=== PATIENT | male | born 1960 | race Caucasian/White ===

== ENCOUNTER → 2017-11-20 07:29 | Outpatient (CLI) | payer OTHER, SELFPAY ==
[2017-11-20 07:53] LABS: HCT 49.2 % (40.0-50.0); HGB 16.5 g/dL (13.5-17.5); Mean Corp. HGB Concentration 33.5 g/dL (32.0-36.0); Mean Corpuscular Hemoglobin 30.8 pg (27.0-33.0); Mean Corpuscular Volume 91.8 fL (80-95); Platelet Count 308 x1000/uL (130-400); RBC 5.36 m/cumm (4.50-6.00); RBC Distribution Width 13.8 % (11.8-14.1); White Blood Cell Count 9.76 k/cumm (4.4-10.8)
[2017-11-20 09:24] LABS: ALT 36 U/L (12-78); AST 19 U/L (15-37); Albumin 3.5 g/dL (3.4-5.0); Alkaline Phosphatase 102 U/L (46-116); Anion Gap 9.6 mmol/L (3-11); BUN 13 mg/dL (7-18); Bilirubin, Total 0.4 mg/dL (0.2-1.0); CO2 26.4 mmol/L (21.0-32.0); CREATININE 1.01 mg/dL (0.70-1.30); Calcium 8.5 mg/dL (8.5-10.1); Chloride 105 mmol/L (98-107); Glucose 109 mg/dL (70-100); Potassium 4.3 mmol/L (3.5-5.1); Sodium 141 mmol/L (136-145); TSH 1.57 uIU/mL (0.358-3.74); Total Protein 6.6 g/dL (6.4-8.2)
== END ==
PROVIDERS: PCP Nurse Practitioner Family; Visit Provider Nurse Practitioner Family
DX: R53.83 Other fatigue (principal)
CPT/HCPCS: 36415; 80053; 85027; 84443

== ENCOUNTER 2018-01-29 08:24 | Outpatient (CLI) | payer OTHER, SELFPAY ==
[2018-01-29 10:09] LABS: ALT 35 U/L (12-78); AST 17 U/L (15-37); Albumin 3.2 g/dL (3.4-5.0); Alkaline Phosphatase 99 U/L (46-116); Anion Gap 12.8 mmol/L (3-11); BUN 13 mg/dL (7-18); Bilirubin, Total 0.5 mg/dL (0.2-1.0); CO2 26.2 mmol/L (21.0-32.0); CREATININE 0.94 mg/dL (0.70-1.30); Calcium 8.4 mg/dL (8.5-10.1); Chloride 105 mmol/L (98-107); FREE T4 0.78 ng/dL (0.76-1.46); Glucose 115 mg/dL (70-100); Potassium 4.2 mmol/L (3.5-5.1); Sodium 144 mmol/L (136-145); TSH 1.02 uIU/mL (0.358-3.74); Total Protein 6.3 g/dL (6.4-8.2)
[2018-01-29 12:23] LABS: Cholesterol 195 mg/dL (50-200); HDL Cholesterol 46 mg/dL (40-60); LDL CHOLESTEROL 130 mg/dL (<100); Triglyceride 102 mg/dL (30-150)
[2018-02-01 11:25] LABS: Hepatitis C Ab w Rflx HCV PCR Negative (NEGAT)
== END 2018-01-29 08:44 ==
PROVIDERS: Nurse Practitioner Family; PCP Nurse Practitioner Family; Visit Provider Nurse Practitioner Family
DX: Z00.00 Encounter for general adult medical examination without abnormal findings (principal); E66.9 Obesity, unspecified; Z13.220 Encounter for screening for lipoid disorders; Z11.59 Encounter for screening for other viral diseases; Z13.228 Encounter for screening for other metabolic disorders
CPT/HCPCS: 36415; 80053; 80061; 83721; 86803; 84439; 84443

== ENCOUNTER 2018-02-08 09:37 | Outpatient (CLI) | payer OTHER, SELFPAY ==
[2018-02-08 10:49] LABS: Hemoglobin A1C 6.4 % (4.5-6.2)
[2018-02-11 11:34] LABS: Testosterone, Free 4.92 ng/dL (3.87-14.7); Testosterone, Total 164 ng/dL (240-950)
== END 2018-02-08 09:57 ==
PROVIDERS: PCP Nurse Practitioner Family; Visit Provider Nurse Practitioner Family
DX: R53.83 Other fatigue (principal); Z00.00 Encounter for general adult medical examination without abnormal findings
CPT/HCPCS: 36415; 84402; 84403; 83036

== ENCOUNTER 2018-02-19 07:48 | Outpatient (CLI) | payer OTHER, SELFPAY ==
[2018-02-21 11:45] LABS: Testosterone, Total 175 ng/dL (240-950)
[2018-02-22 10:55] LABS: FSH 3.2 mIU/ml (1.4-18.1); LH 3.9 mIU/ml (2-9)
== END 2018-02-19 08:08 ==
PROVIDERS: PCP Nurse Practitioner Family; Visit Provider Nurse Practitioner Family
DX: E29.1 Testicular hypofunction (principal)
CPT/HCPCS: 36415; 84403; 83001; 83002

== ENCOUNTER 2018-09-05 08:54 | Outpatient (CLI) | payer OTHER, SELFPAY ==
[2018-09-05 09:35] LABS: Hemoglobin A1C 5.8 % (4.5-6.2)
[2018-09-05 10:29] LABS: Cholesterol 160 mg/dL (50-200); HDL Cholesterol 34 mg/dL (40-60); LDL CHOLESTEROL 102 mg/dL (<100); Triglyceride 65 mg/dL (30-150)
== END 2018-09-05 09:14 ==
PROVIDERS: PCP Nurse Practitioner Family; Visit Provider Nurse Practitioner Family
DX: R73.01 Impaired fasting glucose (principal)
CPT/HCPCS: 36415; 80061; 83721; 83036

== ENCOUNTER 2019-02-15 07:41 | Outpatient (CLI) | payer OTHER, SELFPAY ==
[2019-02-15 08:24] LABS: Abs Immature Grans 0.13 k/cumm (0.0-0.09); Absolute Basophil Count 0.05 k/cumm (0.0-0.2); Absolute Eosinophil Count 0.35 k/cumm (0.0-0.7); Absolute Lymphocyte Count 2.67 k/cumm (1.2-3.4); Absolute Monocyte Count 1.07 k/cumm (0.11-0.7); Absolute Neutrophil Count 4.94 k/cumm (1.2-6.7); Basophils % 0.5; Eosinophils % 3.8; HCT 49.3 % (40.0-50.0); HGB 16.1 g/dL (13.5-17.5); Immature Grans % 1.4; Mean Corp. HGB Concentration 32.7 g/dL (32.0-36.0); Mean Corpuscular Volume 91.8 fL (80-95); Mean Platelet Volume 9.8 fL (8.0-11.0); Monocytes % 11.6; Neutrophils % 53.7; Platelet Count 311 x1000/uL (130-400); RBC 5.37 m/cumm (4.50-6.00); RBC Distribution Width 13.8 % (11.8-14.1); White Blood Cell Count 9.21 k/cumm (4.4-10.8)
[2019-02-15 09:14] LABS: ALT 34 U/L (16-63); AST 18 U/L (15-37); Albumin 3.4 g/dL (3.4-5.0); Alkaline Phosphatase 102 U/L (46-116); Anion Gap 10.3 mmol/L (3-11); BUN 19 mg/dL (7-18); Bilirubin, Total 0.6 mg/dL (0.2-1.0); CO2 25.7 mmol/L (21.0-32.0); CREATININE 1.05 mg/dL (0.70-1.30); Chloride 104 mmol/L (98-107); Glucose 135 mg/dL (70-100); Potassium 4.3 mmol/L (3.5-5.1); Sodium 140 mmol/L (136-145); TSH (W/Ref FT4) 1.87 uIU/mL (0.36-3.74); Total Protein 6.7 g/dL (6.4-8.2)
[2019-02-16 11:13] LABS: Calculated LDL 121 mg/dL; Cholesterol 192 mg/dL (50-200); HDL Cholesterol 48 mg/dL (40-60); Triglyceride 118 mg/dL (30-150)
[2019-02-16 11:18] LABS: Hemoglobin A1C 6.1 % (4.5-6.2)
--- NOTE | 2019-02-18 11:10 | AMB.OFFPRO_ITS ---
OFFICE PROCEDURE NOTE DATE OF PROCEDURE: February 18, 2019 PREOPERATIVE DIAGNOSIS: Extensive viral warts on bilateral hands. Today we only treated the right hand. SURGEON: Lupe Biswas D.O. ANESTHESIA: Local. ESTIMATED BLOOD LOSS: < 5 cc's CONDITION: The patient tolerated the procedure well without complications. HISTORY: Mr. Sr is a 58-year-old male who presents to the office today for treatment of long-time viral warts. He has had these for many years. They actually are continuing to become worse and are starting to spread. He is here today for removal. Informed consent was obtained explaining risks and benefits of the procedure, including but not limited to bleeding, infection, complications from anesthesia, chronic pain, chronic numbness and recurrence. He understands that he is going to need multiple treatments over a period of time and we can?t treat all of them in one day. We addressed the right hand first today, as these appear to be the least involved extremity. He has extensive disease on his right thumb and then on the fourth, fifth inter-web space he has two warts, as well as on the fifth digit. PROCEDURE: The thumb was attended to first and we did do a ring block on this. The distal portion of the proximal phalange is prepped and draped in the usual sterile fashion using a Betadine scrub solution. A ring block is performed with 10 cc's of 1% Lidocaine plain. Once the block had set in, the thumb tip is then prepped and draped using Betadine. The firm warty tissue is pared down. Cautery was used to provide hemostasis and two applications of liquid nitrogen are used. Each additional wart is then treated with injections of local Lidocaine and the overlying tissue is debrided down to the base. It is cauterized and then x2 applications of liquid nitrogen are applied. Band-Aids are applied. He was given instructions in wound care, activity and warning signs. He does not want any pain meds and will use ice and ibuprofen as needed. He should avoid any ?dirty work? and/or use gloves as needed. We will see him back in two weeks in follow-up and see how they are healing up and then attend to the warts on the left hand as well. The patient tolerated the procedure well without complications. ALESIA/armando D/ cc: Kenzie Hahn APRN
== END 2019-02-15 08:01 ==
PROVIDERS: PCP Nurse Practitioner Family; Visit Provider Nurse Practitioner Family
DX: Z00.00 Encounter for general adult medical examination without abnormal findings (principal); Z13.0 Encounter for screening for diseases of the blood and blood-forming organs and certain disorders involving the immune mechanism; Z13.29 Encounter for screening for other suspected endocrine disorder; Z13.228 Encounter for screening for other metabolic disorders; Z13.1 Encounter for screening for diabetes mellitus; Z13.220 Encounter for screening for lipoid disorders; Z12.5 Encounter for screening for malignant neoplasm of prostate
CPT/HCPCS: 36415; 80053; 80061; 84153; 83036; 84443; 85025

== ENCOUNTER 2019-06-10 07:42 | Outpatient (CLI) | payer OTHER, SELFPAY ==
[2019-06-10 10:07] LABS: Hemoglobin A1C 6.7 % (3.8-5.6)
[2019-06-10 11:59] LABS: Anion Gap 7.4 mmol/L (3-11); BUN 16 mg/dL (7-18); CO2 31.6 mmol/L (21.0-32.0); CREATININE 1.19 mg/dL (0.70-1.30); Calcium 8.4 mg/dL (8.5-10.1); Chloride 103 mmol/L (98-107); Glucose 102 mg/dL (74-106); Magnesium 2.2 mg/dL (1.8-2.4); Potassium 4.5 mmol/L (3.5-5.1); Sodium 142 mmol/L (136-145)
[2019-06-13 09:44] LABS: HBs Antibody, Quant 14.8 mIU/mL (See Note); Hepatitis B Surface Ab Positive (See Note)
[2019-06-13 11:06] LABS: Hepatitis C Ab w Rflx HCV PCR Negative (Negative)
== END 2019-06-10 08:02 ==
PROVIDERS: PCP Nurse Practitioner Family; Visit Provider Nurse Practitioner Family
DX: R73.03 Prediabetes (principal)
CPT/HCPCS: 36415; 80048; 86706; 86803; 83036; 83735

== ENCOUNTER 2020-01-20 04:43 | Outpatient (CLI) | payer OTHER, SELFPAY ==
--- NOTE | 2020-01-20 13:30 | DI.CT_ITS ---
EXAM: CT ABDOMEN PELVIS W CLINICAL HISTORY: INCREASING ABD PAIN, R10.9. TECHNIQUE: Imaging Protocol: Axial computed tomography images with coronal and sagittal reformatted images were created and reviewed CONTRAST MATERIAL: Intravenous: Omnipaque 350 Contrast volume:100 ml Oral: yes / COMPARISON: No exams were available for comparison FINDINGS: ABDOMEN: Lung Bases: Normal where visualized. Liver: Normal density. No measurable mass. Gallbladder and biliary tract: No radiodense calculus or dilation. Pancreas: Normal density, no abnormal calcifications or inflammatory process. Spleen: Normal. Kidneys: Normal size, contour and axis. No radiodense stones or obstructive uropathy. No masses seen. Bilateral renal cysts. Adrenal glands: No masses seen. Abdominal Aorta: Abdominal portion non-dilated. PELVIS: Bladder: Symmetric distention, no gross wall thickening. Bowel: Small hiatal hernia. No obstruction or bowel wall thickening. Normal appendix. Peritoneal cavity: No ascites, collection or mesenteric inflammatory response. Bones: Within normal limits. Reproductive organs: Nodule in the central superior prostate with impression on the base of the bladd er. Lymph nodes: Unremarkable. Small bilateral fatty containing inguinal hernias. Impression: No acute abnormality is identified in the abdomen and pelvis. RADIATION DOSE DELIVERED: 1,296.05mGy.cm Total DLP DATA REPOSITORY: All CT scans at this facility are submitted to the National Radiology Data Registry (NRDR) Dose Index Registry (DIR) with the [employer] (ACR). RADIATION OPTIMIZATION: All CT scans at this facility use at least one of these dose optimization te chniques: automated exposure control; mA and/or kV adjustment per patient size (includes targeted exa ms where dose is matched to clinical indication); or iterative reconstruction.
[2020-01-20] MEDS: Omnipaque 350 MG/ML 100 ML BTL IJ (15:22)
[2020-01-20] MEDS: Normal Saline - Diluent 50 ML VIAL IV (15:23)
[2020-01-20] MEDS: Omnipaque 350 MG/ML 50 ML BTL PO (15:24)
== END 2020-01-20 05:03 ==
PROVIDERS: PCP Nurse Practitioner Family; Visit Provider Nurse Practitioner Family
DX: R10.9 Unspecified abdominal pain (principal)
CPT/HCPCS: 74177; J3490; Q9967

== ENCOUNTER 2020-03-08 02:26 | Outpatient (CLI) | payer OTHER, SELFPAY ==
[2020-03-09 22:05] LABS: SARS-CoV-2 RNA Not Detected (NotDetected); SARS-CoV-2 RNA Source Nasal/Nares
== END 2020-03-08 02:46 ==
PROVIDERS: PCP Nurse Practitioner Family; Visit Provider Surgery
DX: Z11.59 Encounter for screening for other viral diseases (principal); Z01.818 Encounter for other preprocedural examination
CPT/HCPCS: U0003

== ENCOUNTER 2020-03-09 03:28 | Outpatient (CLI) | payer OTHER, SELFPAY ==
[2020-03-09 07:55] LABS: Abs Immature Grans 0.08 10^3/uL (0.0-0.06); Absolute Basophil Count 0.04 10^3/uL (0.0-0.2); Absolute Eosinophil Count 0.42 10^3/uL (0.0-0.7); Absolute Lymphocyte Count 2.41 10^3/uL (1.2-3.4); Absolute Monocyte Count 1.01 10^3/uL (0.1-0.8); Absolute Neutrophil Count 5.53 10^3/uL (1.2-6.7); Basophils % 0.4; Eosinophils % 4.4; HCT 47.7 % (40.0-50.0); HGB 16.1 g/dL (13.5-17.5); Immature Grans % 0.8; Lymphocytes % 25.4; MCH 30.6 pg (27.0-33.0); MCHC 33.8 % (32.0-36.0); MCV 90.7 fL (80-95); MPV 9.6 fL (8.0-11.0); Monocytes % 10.6; Neutrophils % 58.4; Nucleated RBC 0 %; Platelet Count 327 10^3/uL (130-400); RBC 5.26 10^6/uL (4.36-5.78); RDW 13.1 % (11.8-14.1); RDW-SD 43.8 fL; WBC 9.49 10^3/uL (4.4-10.8)
[2020-03-09 08:26] LABS: Hemoglobin A1C 6.4 % (<5.7)
[2020-03-09 09:22] LABS: ALT 30 U/L (16-63); AST 18 U/L (15-37); Albumin 3.6 g/dL (3.4-5.0); Alkaline Phosphatase 83 U/L (46-116); Anion Gap 6.6 mmol/L (3-11); BUN 16 mg/dL (7-18); Bilirubin, Total 0.6 mg/dL (0.2-1.0); CO2 26.4 mmol/L (21.0-32.0); CREATININE 1.06 mg/dL (0.70-1.30); Calcium 8.6 mg/dL (8.5-10.1); Chloride 104 mmol/L (98-107); FREE T4 0.91 ng/dL (0.76-1.46); Glucose 113 mg/dL (74-106); Potassium 4.2 mmol/L (3.5-5.1); Sodium 137 mmol/L (136-145); TSH 1.14 uIU/mL (0.36-3.74); Total Protein 6.7 g/dL (6.4-8.2)
[2020-03-09 09:43] LABS: Calculated LDL 119 mg/dL (<100); Cholesterol 182 mg/dL (<200); HDL Cholesterol 47 mg/dL (40-60); Triglyceride 80 mg/dL (<150)
[2020-03-09 13:09] LABS: Vitamin D 25 Total 19.6 ng/ml (30-100)
[2020-03-12 14:09] LABS: PSA, Screening 0.6 ng/mL (0-3.5)
== END 2020-03-09 03:48 ==
PROVIDERS: PCP Nurse Practitioner Family; Visit Provider Nurse Practitioner Family
DX: Z00.00 Encounter for general adult medical examination without abnormal findings (principal); Z13.220 Encounter for screening for lipoid disorders; Z13.1 Encounter for screening for diabetes mellitus; Z13.29 Encounter for screening for other suspected endocrine disorder; Z13.228 Encounter for screening for other metabolic disorders; Z13.21 Encounter for screening for nutritional disorder; Z12.5 Encounter for screening for malignant neoplasm of prostate
CPT/HCPCS: 36415; 80053; 80061; 82306; 84153; 83036; 84439; 84443; 85025

== ENCOUNTER 2020-03-12 09:07 | Day surgery (SDC) | payer OTHER, SELFPAY ==
--- NOTE | 2020-03-12 07:03 | COLE_ITS ---
Date of service: 03/12/20 Time of Service: 11: Colonoscopy Report Date of procedure: 03/12/20 Pre-op diagnosis general: colon cancer Screening Post-op diagnosis procedure note: other (polyps) Procedure: Colonoscopy with polypectomy by forceps Surgeon: Esther Us Anesthesia proc note operative: other (General/ASA 2/oJby Cain CRNA) Estimated blood loss (mL): 3 Pathology: other (ascending polyp, sigmoid polyp x2) Complications: None Disposition: same day Indications: Mr. Sr is a pleasant 59 year old male seen in the office to discuss a colonoscopy. His last colonoscopy was 10 years ago and was normal. He has no family history of colon cancer. He has had no Cardiac or respiratory issues. Ousmane does have sleep apnea and uses a CPAP machine. He also has GERD that is well controlled on Protonix. Discussed the procedure and complications. Also reviewed COVID testing and quarantine requirements Plan: Colonoscopy under sedation Pre-procedure COVID testing Risks, benefits and complications have been reviewed. Complications include but are not limited to bleeding, pain, perforation, missed small lesion/polyp, sore throat, aspiration and adverse reaction to the medications. Questions were entertained and answered to their satisfaction and they wished to proceed. No guarantees were given or implied. Prep: Miralax/Dulcolax Procedure Start Time: : Procedure End Time: Retraction Time: 14 minutes Procedure Description: After informed consent was obtained the patient was taken to the procedure room and placed in a left decubitous position. Monitors were applied and a time out was done. The patients name, date of , proc edure, allergies to medications and metal in their body was reviewed. The patient was then sedated. Once sedated and comfortable a rectal exam was done. External exam was normal. Internal exam revealed a normal sphincter tone and no palpable masses. The prostate felt smooth. The scope was then introduced and retro-flexed. No internal hemorrhoids were identified. The scope was then advanced to the cecum without difficulty. The ileocecal vlave and appendiceal orifice were identified. The prep was good. The scope was then slowly retracted over 14 minutes back into the rectum. Polyps were removed with cold forceps in the ascenidng colon and sigmoid colon. All three polyps were <0.5 cm in size. There were no diverticula. The scope was removed and the patient was woken up and taken back to Same day surgery in stable condition. The patient tolerated the procedure well and there were no immediate complications. Follow up: The patient should follow up in 5-10 years depending on final pathology results, unless they develop changes in bowel habits or other new gastrointestinal complaints.
--- NOTE | 2020-03-12 07:04 | W.PM.DSUDISC ---
Discharge Plan Disposition Patient Disposition: HOME Condition: Good Discharge Details Reason For Visit: Colonoscopy Attending Provider: Esther Us Primary Care Provider: Kenzie Hahn Home Meds and New Rx's Prescriptions: Continued escitalopram oxalate 20 mg tablet 20 mg PO DAILY RF: 0 pantoprazole [Protonix] 40 MG tablet,delayed release (DR/EC) 40 mg PO DAILY Qty: 90 RF: 3 montelukast [Singulair] 10 MG tablet 10 mg PO DAILY Qty: 90 RF: 4 Dulera 8.8 GM HFA aerosol inhaler 2 puff Inhalation BID RF: 0 albuterol sulfate [Proventil HFA] 6.7 GM HFA aerosol inhaler 2 puff Inhalation Q4H PRN Qty: 1 RF: 3 Discharge Instructions Additional Instructions: Findings: 3 very small polyps Follow up: will depend on the pathology results Please call if you develop: fevers >101.5 Nausea or Vomiting Abdominal pain that is not transient DAY SURGERY UNIT POST ENDOSCOPY INSTRUCTIONS 1. Because there will be medication in your system for the next 24 hours, you may feel a little sleepy. Your coordination will be affected. Therefore: a. Do not drive or operate dangerous equipment for 24 hours. b. Do not drink alcohol beverages for 24 hours (not even beer). c. Plan to go home and rest for the day. 2. Generally there are no restrictions on your activity after a day or so has gone by, but you may feel a bit fatigued for a few days. 3 After you arrive home you may have a light meal and return to a normal diet as you can tolerate it without feeling sick to your stomach. 4. After surgery, you may feel pain or discomfort. This should be only transient, but if it persists please contact your doctor. 5. If there are any questions regarding the findings of your procedure, please feel free to contact your doctor. 6. If you are unable to contact your doctor with a problem, contact the hospital at [phone]. 7. Continue all your regular medications unless directed otherwise. I understand the above instructions and have no questions. Signature of Patient or Responsible Adult Escort Date/Time Name of Responsible Adult Escort Signature of Nurse Date/Timen Activity:: Activity as Tolerated Diet:: As Tolerated Discharge Orders Discharge Orders: Discharge Order (Routine); Ordered 03/12/20 Ordered By: Esther Us
[2020-03-12 09:31] VITALS: BP 133/80; PULSE 79; RESP 18; TEMP 36.2; O2SAT 98
[2020-03-12] MEDS: Lactated Ringers 1,000 ML 80 ML IV (09:45)
--- NOTE | 2020-03-12 11:21 | BOWEL_PTH ---
PATIENT: Yannick Sr LOC: [facility] U#:[id number] AGE/SX: 59/M ROOM: RE03/12/[address]: Esther Us MD : 1960 BED: DIS: 03/12/2020 SPEC #: [id number] RECD: 03/12/20 13:04 STATUS: CARLOS REQ #: [id number] JARETT: 03/12/20 11:[address]: Esther Us DEPT: Surgical Specimen RECD BY: Jenna Ibrahim ENTERED: 03/12/20 13:04 SP TYPE: Bowel OTHR DR: Kenzie Hahn Tissues: 1 - BIOPSY BOWEL 2 - BIOPSY BOWEL Procedures: GROSS AND MICRO LEVEL 4 Comments: [id number]
[2020-03-12 12:10] VITALS: BP 130/76; PULSE 59; RESP 18; TEMP 36; O2SAT 96
== END 2020-03-12 12:50 | disposition home or self-care (01) ==
LOC: SUR 09:07
PROVIDERS: PCP Nurse Practitioner Family; Visit Provider Surgery
PROC: 0DJD8ZZ Inspection of Lower Intestinal Tract, Via Natural or Artificial Opening Endoscopic (ICD-10-PCS; CPT 45378; principal; 2020-03-12 11:00)
DX: Z12.11 Encounter for screening for malignant neoplasm of colon (principal); D12.2 Benign neoplasm of ascending colon; K63.5 Polyp of colon
CPT/HCPCS: 45380; 88305

== ENCOUNTER 2020-06-06 03:10 | Outpatient (CLI) | payer OTHER, SELFPAY ==
[2020-06-06 08:37] LABS: Hemoglobin A1C 6.9 % (<5.7)
[2020-06-06 09:24] LABS: Anion Gap 6.7 mmol/L (3-11); BUN 16 mg/dL (7-18); CO2 27.3 mmol/L (21.0-32.0); CREATININE 1.1 mg/dL (0.70-1.30); Chloride 105 mmol/L (98-107); Glucose 145 mg/dL (74-106); Potassium 4.2 mmol/L (3.5-5.1); Sodium 139 mmol/L (136-145)
[2020-06-06 10:05] LABS: Creatine Kinase 204 U/L (39-308)
== END 2020-06-06 03:11 | disposition home or self-care (01) ==
LOC: LBO 03:10
PROVIDERS: PCP Nurse Practitioner Family; Visit Provider Internal Medicine
DX: R00.2 Palpitations (principal); R73.9 Hyperglycemia, unspecified
CPT/HCPCS: 36415; 80048; 82550; 83036; 83735

== ENCOUNTER 2020-07-06 01:42 | Outpatient (CLI) | payer OTHER, SELFPAY ==
--- NOTE | 2020-07-06 15:24 | W.NUTCONSULT ---
Date of service: 07/06/20 Time of Service: 10:00 Nutritional Consult ASSESSMENT: ASSESSMENT: Yannick presents with referral for new dx of DM2. Currently on metformin 500mg BID and using finger sticks 1X/day am X7 days and 2 hours postprandial x 2 days/week. Yannick mentioned that he had one episode hypoglycemia at ~65mg/dl and was able to take appropriate action with 15g/CHO. He reports his BG readings in the low 100's to 120. Random finger stick at this encounter ~2 hrs postprandial revealed 119mg/dl (WNL). His breakfast today consisted of eggs, 2 slices wheat toast, coffee w//2t sugar and small amount of 1/2+1/2. Documentation reveals A1c 6.9 prior to DM med tx and lifestyle changes around diet. He stated that he has significantly reduced CHO consumption and has had a desirable 9# weight loss recently. Today he weighs 230lbs which is138% IBW. 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 He expressed a disre to lose more weight and keep his BG levels WNL. He reports hiking on the weekends for his current fitness regimen. INTERVENTION: We reviewed CHO counting technique and recommended <60g/CHO per meal period with a focus on 45g as a goal. His breakfast had ~35-40g/CHO and we broke down the carbs in that meal to use as an example. He has agreed to drink 8 oz H2O prior to his meals and understands the concept of simple vs complex CHO's along with pairing PRO and CHO's at meals to mitigate BG spikes. Reviewed the concept of a 7% weight loss corresponding to 1% drop in A1c levels. He now has a weight loss goal of ~16lbs to do this. Reviewed desired BG ranges. Yannick demonstrated ability to use finger stick at this encounter and understood the concept of what behaviors effect BG levels. We discussed food options to promote stable BG levels. Provided literature on all aforementioned. MONITOR/EVAL: Yannick will schedule a f/u appointment in 30 days to review weight loss progress and evaluate his BG and food record. He agreed to take his BG 4x/day X1 week and record his meals and beverages consumed to look for trends at f/u appointment with this RD. He is motivated and has good support. His BG levels appear to be close to WNL and with his new approach to food and medication he is on track to meet his weight loss and glycemic control goals. NUTRITIONAL DIAGNOSIS: DM2 AEB: on metformin, altered BG levels Time Spent in Nutritional Counseling and Treatment: 1 hour face to face/4 units
== END 2020-07-06 01:43 | disposition home or self-care (01) ==
LOC: DS 01:42
PROVIDERS: PCP Nurse Practitioner Family; Visit Provider Dietitian, Registered
DX: E11.9 Type 2 diabetes mellitus without complications (principal); Z79.84 Long term (current) use of oral hypoglycemic drugs; Z71.3 Dietary counseling and surveillance
CPT/HCPCS: 97802

== ENCOUNTER 2020-07-17 02:34 | Outpatient (CLI) | payer OTHER, SELFPAY ==
--- NOTE | 2020-07-17 | DI.US_ITS ---
APPROVED REPORT EXAM: Comprehensive 2D, Doppler, and color-flow Echocardiogram Patient Location: Out-Patient Inspector Filter Tip: Yris Bobby RDCS (AE) Indications: New onset incomplete RT BBB Other Information Study Quality: Good Conclusion Left Ventricle : The left ventricle is normal size. The left ventricular systolic function is normal. The left ventricular ejection fraction is within the normal range. There is normal left ventricular wall thickness. There is normal LV segmental wall motion. The left ventricular diastolic function is normal. LVEF is 60%. Right Ventricle : The right ventricle is normal size. The right ventricular systolic function is norm al. The RVSP is 23.7 mmHg. Atria : The left atrium size is normal. The right atrium size is normal. Valves: There are no hemodynamically significant valvular lesions. Great Vessels : The aortic root is normal in size. The ascending aorta is normal in size. Aortic arch is normal in caliber. IVC is normal in size and collapses >50% with inspiration. Please see remainder of study for further details. Wall motion Left Ventricle The left ventricle is normal size. The left ventricular systolic function is normal. The left ventric ular ejection fraction is within the normal range. There is normal left ventricular wall thickness. T here is normal LV segmental wall motion. The left ventricular diastolic function is normal. There is no ventricular septal defect visualized. LVEF is 60%. Right Ventricle The right ventricle is normal size. The right ventricular systolic function is normal. The RVSP is 23 .7 mmHg. Atria The left atrium size is normal. The right atrium size is normal. The interatrial septum is intact wit h no evidence for an atrial septal defect. Aortic Valve The aortic valve is normal in structure. Aortic valve is trileaflet. There is no aortic valvular sten osis. No aortic regurgitation is present. Mitral Valve The mitral valve is normal in structure. No evidence of mitral valve stenosis. Trace mitral regurgita tion. Tricuspid Valve The tricuspid valve is normal in structure. There is no tricuspid valve stenosis. Trace tricuspid reg urgitation. Pulmonic Valve The pulmonary valve is normal in structure. There is no pulmonic valvular stenosis. Trace pulmonic re gurgitation. Great Vessels The aortic root is normal in size. The ascending aorta is normal in size. Aortic arch is normal in ca liber. IVC is normal in size and collapses >50% with inspiration. Pericardium There is no pericardial effusion. 2D Dimensions IVSD d PLAX 1.03 cm M: 0.6-1.2 LV Vol A2C d MOD 96.4 mL LVPW d PLAX 1.02 cm M: 0.6 - 1.2 LV Vol A4C d MOD 121.9 mL LVID d PLAX 4.82 cm M: 4.2 - 5.8 LA vol/ BSA A4C s A-L 24.1 mL/m2 LVDs 3.20 cm M: 2.5 - 4.0 LA Area A4C s MOD 19.80 cm2 Ao Root d 3.05 cm M: 3.1 - 3.7 LV EF A4C MOD 58.7 % RA Area A4C 16.25 cm2 LV EF A2C MOD 60.8 % RA Vol/ BSA A4C s A-L 20.6 mL/m2 LV EF Biplane MOD 60.3 % Ao Asc Diam d 3.28 cm M: 2.6 - 3.4 SV 67.45 mL LV EF Teichholz 61.2 % SV Index 30.25 mL/m2 LVEF (Hanccok's) 60.26 % M: 52 - 72 LV Volume 81.07 mL M: 62 - 150 LV Volume Index 36.35 mL/m2 M: 34 - 74 LV Vol Biplane MOD 111.9 mL FS 32.80 % M-Mode TAPSE 2.10 cm (M/F) >1.7 LV Diastology MV E' medial 0.099 (>0.07 m/s) E/A Ratio 1.7 LV E/e MED 7.55 (<14) MV E Vmax 0.75 (0.4-1.3 m/s) MV E' lateral 0.121 (>0.1 m/s) MV A Vmax 0.45 (0.4-1.3 m/s) LV E/e LAT 6.20 (<14) MV E/A Ratio 1.59 MV E/E' medial 7.56 MV E/E' lateral 6.23 Aortic Valve LVOT Area 3.10 cm2 AoV Area Vmax 2.26 cm2 LVOT Vmax 1.14 m/s AoV Area/ BSA (Vmax) 1.01 cm2/m2 LVOT Mean Arsen. 0.75 m/s MAIKEL Mean Arsen. 2.13 cm2 LVOT Peak Grad 5.2 mmHg MAIKEL Mean Arsen. Index 0.95 cm2/m2 LVOT Mean Grad 2.6 mmHg LVOT VTI 0.264 m LVOT Diam s 1.95 cm AoV Vmax 1.56 m/s Velocity Ratio 0.73 AoV Mean Arsen. 1.09 m/s AoV Peak Grad 9.7 mmHg LVOT SV 81.73 mL AoV Mean Grad 5.4 mmHg AoV VTI 0.362 m AoV Area VTI 2.26 cm2 AoV Area/ BSA (VTI) 1.01 cm/m2 Mitral Valve MV DT 226 (160-240 msec) MV PHT 65 msec MV Area PHT 3.36 cm2 MV VTI 0.290 m MV Area VTI 2.82 (4.0-6.0 cm2) Pulmonary Valve PV Vmax 1.01 (0.5-1.5 m/s) RVOT Peak Gr. 2.23 mmHg PV Peak Grad 4.1 mmHg RVOT Mean Gr. 1.20 mmHg PV Mean Grad 2.2 mmHg RVOT VTI 0.198 m PV VTI 0.256 m RVOT Vmax 0.75 m/s Tricuspid Valve TR Peak Grad 20.6 mmHg TR Vmax 2.27 m/s RA Pressure 3.00 mmHg RVSP (TR) 23.7 mmHg
== END 2020-07-17 02:54 ==
PROVIDERS: PCP Nurse Practitioner Family; Visit Provider Nurse Practitioner Family
DX: I45.10 Unspecified right bundle-branch block (principal)
CPT/HCPCS: 93306

== ENCOUNTER 2020-09-14 02:23 | Outpatient (CLI) | payer OTHER, SELFPAY ==
[2020-09-14 10:45] LABS: Anion Gap 8.6 mmol/L (3-11); BUN 15 mg/dL (7-18); CO2 27.4 mmol/L (21.0-32.0); Calcium 8.8 mg/dL (8.5-10.1); Chloride 107 mmol/L (98-107); Glucose 76 mg/dL (74-106); Potassium 4.4 mmol/L (3.5-5.1); Sodium 143 mmol/L (136-145)
[2020-09-14 11:28] LABS: COMMENT (LAB VIEW ONLY) 166.26 mg/dL; Microalb ug/mg Crea 4.4 ug/mg Cr
== END 2020-09-14 02:24 | disposition home or self-care (01) ==
LOC: LBO 02:23
PROVIDERS: PCP Nurse Practitioner Family; Visit Provider Nurse Practitioner Family
DX: E11.9 Type 2 diabetes mellitus without complications (principal)
CPT/HCPCS: 36415; 80048; 82043; 82570; 83036

== ENCOUNTER 2021-02-01 02:48 | Outpatient (CLI) | payer OTHER, SELFPAY ==
[2021-02-01 13:04] LABS: Abs Immature Grans 0.13 10^3/uL (0.0-0.06); Absolute Basophil Count 0.03 10^3/uL (0.0-0.2); Absolute Eosinophil Count 0.36 10^3/uL (0.0-0.7); Absolute Lymphocyte Count 2.46 10^3/uL (1.2-3.4); Absolute Monocyte Count 1.09 10^3/uL (0.1-0.8); Basophils % 0.3; Eosinophils % 3.2; HGB 16.7 g/dL (13.5-17.5); Immature Grans % 1.2; MCH 30.2 pg (27.0-33.0); MCHC 33.4 % (32.0-36.0); MCV 90.4 fL (80-95); MPV 9.8 fL (8.0-11.0); Monocytes % 9.8; Neutrophils % 63.5; Nucleated RBC 0 %; Platelet Count 296 10^3/uL (130-400); RBC 5.53 10^6/uL (4.36-5.78); RDW 13.1 % (11.8-14.1); RDW-SD 43.5 fL; WBC 11.17 10^3/uL (4.4-10.8)
[2021-02-01 13:36] LABS: COMMENT (LAB VIEW ONLY) 136.85 mg/dL; Microalb ug/mg Crea 2.5 ug/mg Cr
[2021-02-01 13:39] LABS: Hemoglobin A1C 6.1 % (<5.7)
[2021-02-01 13:58] LABS: ALT 31 U/L (16-63); AST 20 U/L (15-37); Albumin 3.8 g/dL (3.4-5.0); Alkaline Phosphatase 97 U/L (46-116); BUN 16 mg/dL (7-18); Bilirubin, Total 0.6 mg/dL (0.2-1.0); Chloride 104 mmol/L (98-107); Glucose 98 mg/dL (74-106); Potassium 4.5 mmol/L (3.5-5.1); Sodium 140 mmol/L (136-145)
[2021-02-01 23:32] LABS: PSA, Screening 1.2 ng/mL (0.0-4.5)
== END 2021-02-01 02:49 | disposition home or self-care (01) ==
LOC: LBO 02:49
PROVIDERS: PCP Nurse Practitioner Family; Visit Provider Nurse Practitioner Primary Care
DX: E11.9 Type 2 diabetes mellitus without complications (principal); Z12.5 Encounter for screening for malignant neoplasm of prostate; Z00.00 Encounter for general adult medical examination without abnormal findings
CPT/HCPCS: 36415; 80053; 84153; 82043; 82570; 83036; 85025

== ENCOUNTER 2021-04-30 02:38 | Outpatient (CLI) | payer OTHER, SELFPAY ==
[2021-04-30 09:14] LABS: Abs Immature Grans 0.14 10^3/uL (0.0-0.06); Absolute Basophil Count 0.06 10^3/uL (0.0-0.2); Absolute Eosinophil Count 0.44 10^3/uL (0.0-0.7); Absolute Monocyte Count 0.97 10^3/uL (0.1-0.8); Absolute Neutrophil Count 5.09 10^3/uL (1.2-6.7); Basophils % 0.7; Eosinophils % 4.9; HCT 49.2 % (40.0-50.0); HGB 16.1 g/dL (13.5-17.5); Immature Grans % 1.6; Lymphocytes % 24.7; MCHC 32.7 % (32.0-36.0); MCV 91.8 fL (80-95); Monocytes % 10.9; Neutrophils % 57.2; Nucleated RBC 0 %; Platelet Count 291 10^3/uL (130-400); RBC 5.36 10^6/uL (4.36-5.78); RDW 12.9 % (11.8-14.1); RDW-SD 43.7 fL
[2021-04-30 09:29] LABS: Hemoglobin A1C 8.5 % (<5.7)
[2021-04-30 09:30] LABS: ESR 9 mm/hr (0-20)
[2021-04-30 10:21] LABS: COMMENT (LAB VIEW ONLY) 177.48 mg/dL; Microalb ug/mg Crea 9.9 ug/mg Cr
[2021-04-30 10:42] LABS: ALT 35 U/L (16-63); AST 16 U/L (15-37); Albumin 3.5 g/dL (3.4-5.0); Alkaline Phosphatase 108 U/L (46-116); Anion Gap 6.2 mmol/L (3-11); BUN 18 mg/dL (7-18); Bilirubin, Total 0.6 mg/dL (0.2-1.0); CO2 31.8 mmol/L (21.0-32.0); CREATININE 1.1 mg/dL (0.70-1.30); Calculated LDL 144 mg/dL (<100); Chloride 99 mmol/L (98-107); Cholesterol 218 mg/dL (<200); Ferritin 261 ng/mL (26-388); Folate 4.7 ng/mL (8.6-20.0); Glucose 211 mg/dL (74-106); HDL Cholesterol 49 mg/dL (40-60); Potassium 4.3 mmol/L (3.5-5.1); Sodium 137 mmol/L (136-145); Total Protein 6.9 g/dL (6.4-8.2); Triglyceride 127 mg/dL (<150); Vitamin B12 1153 pg/mL (193-986)
[2021-04-30 17:57] LABS: PSA, Screening 0.6 ng/mL (0.0-4.5)
[2021-05-01 14:47] LABS: ANA Interpretation Negative (Negative)
== END 2021-04-30 02:39 | disposition home or self-care (01) ==
LOC: LBO 02:38
PROVIDERS: PCP Nurse Practitioner Family; Visit Provider Nurse Practitioner Primary Care
DX: E11.9 Type 2 diabetes mellitus without complications (principal); K14.6 Glossodynia; Z00.00 Encounter for general adult medical examination without abnormal findings
CPT/HCPCS: 36415; 80053; 80061; 84153; 85652; 82043; 82570; 82607; 82728; 82746; 83036; 85025; 86038

== ENCOUNTER 2021-08-02 02:17 | Outpatient (CLI) | payer OTHER, SELFPAY ==
--- NOTE | 2021-08-02 | DI.RAD_ITS ---
Exam(s) XR SINUS COMPLETE 3+V EXAM: XR SINUS COMPLETE 3+V CLINICAL HISTORY: ACUTE SINUSITIS, J01.90, CONSISTENT ERIC FRONTAL SINUS PAIN/PRESSURE. TECHNIQUE: 2D digital imaging was performed. Three views were obtained. COMPARISON: No exams were available for comparison FINDINGS: There is a question of increased opacity of the maxillary sinuses bilaterally. The remaining visuali zed paranasal sinuses appear clear. No evidence of air-fluid level. The nasal septum mildly deviates to the left. IMPRESSION: Question of maxillary sinusitis. A sinus CT may be obtained for further evaluation. DATA REPOSITORY: RADIATION DOSE DELIVERED:
[2021-08-02 13:36] LABS: Hemoglobin A1C 7.1 % (<5.7)
[2021-08-02 14:22] LABS: Calculated LDL 99 mg/dL (<100); Cholesterol 177 mg/dL (<200); Folate 16.6 ng/mL (8.6-20.0); HDL Cholesterol 47 mg/dL (40-60); Triglyceride 158 mg/dL (<150)
== END 2021-08-02 02:18 | disposition home or self-care (01) ==
LOC: LBO 02:17
PROVIDERS: PCP Nurse Practitioner Family; Visit Provider Nurse Practitioner Primary Care
DX: E53.8 Deficiency of other specified B group vitamins (principal); E11.9 Type 2 diabetes mellitus without complications; E78.5 Hyperlipidemia, unspecified; J01.00 Acute maxillary sinusitis, unspecified; J34.2 Deviated nasal septum
CPT/HCPCS: 36415; 80061; 70220; 82746; 83036

== ENCOUNTER 2021-11-08 02:33 | Outpatient (CLI) | payer OTHER, SELFPAY ==
[2021-11-08 15:11] LABS: Hemoglobin A1C 6.4 % (<5.7)
[2021-11-08 16:56] LABS: ALT 32 U/L (16-63); AST 22 U/L (15-37); Albumin 3.7 g/dL (3.4-5.0); Alkaline Phosphatase 97 U/L (46-116); Anion Gap 10.1 mmol/L (3-11); BUN 16 mg/dL (7-18); Bilirubin, Total 0.4 mg/dL (0.2-1.0); CO2 25.9 mmol/L (21.0-32.0); CREATININE 1.4 mg/dL (0.70-1.30); Calcium 8.9 mg/dL (8.5-10.1); Calculated LDL 60 mg/dL (<100); Chloride 102 mmol/L (98-107); Cholesterol 137 mg/dL (<200); Estimated GFR 51.52 (mL/min/1.73m2); Folate 7.2 ng/mL (8.6-20.0); Glucose 106 mg/dL (74-106); HDL Cholesterol 50 mg/dL (40-60); Potassium 3.9 mmol/L (3.5-5.1); Sodium 138 mmol/L (136-145); Total Protein 7.2 g/dL (6.4-8.2); Triglyceride 139 mg/dL (<150)
== END 2021-11-08 02:34 | disposition home or self-care (01) ==
LOC: LBO 02:33
PROVIDERS: PCP Nurse Practitioner Primary Care; Visit Provider Nurse Practitioner Primary Care
DX: E53.8 Deficiency of other specified B group vitamins (principal); E11.9 Type 2 diabetes mellitus without complications; E78.5 Hyperlipidemia, unspecified
CPT/HCPCS: 36415; 80053; 80061; 82746; 83036

== ENCOUNTER 2022-02-07 14:55 | Outpatient (CLI) | payer OTHER, SELFPAY ==
[2022-02-07 14:18] LABS: Hemoglobin A1C 6.3 % (<5.7)
[2022-02-07 14:41] LABS: ALT 29 U/L (16-63); AST 17 U/L (15-37); Albumin 3.7 g/dL (3.4-5.0); Alkaline Phosphatase 114 U/L (46-116); Anion Gap 6.8 mmol/L (3-11); BUN 17 mg/dL (7-18); Bilirubin, Total 0.7 mg/dL (0.2-1.0); CO2 29.2 mmol/L (21.0-32.0); CREATININE 1.1 mg/dL (0.70-1.30); Calcium 8.8 mg/dL (8.5-10.1); Calculated LDL 49 mg/dL (<100); Chloride 103 mmol/L (98-107); Cholesterol 125 mg/dL (<200); Estimated GFR 76.37 (mL/min/1.73m2); Glucose 82 mg/dL (74-106); HDL Cholesterol 51 mg/dL (40-60); Potassium 3.5 mmol/L (3.5-5.1); Sodium 139 mmol/L (136-145); Total Protein 7.4 g/dL (6.4-8.2); Triglyceride 128 mg/dL (<150)
[2022-02-07 14:44] LABS: Microalb ug/mg Crea 5.1 ug/mg Cr
== END 2022-02-07 14:56 | disposition home or self-care (01) ==
LOC: LBO 14:56
PROVIDERS: PCP Nurse Practitioner Primary Care; Visit Provider Nurse Practitioner Primary Care
DX: E11.9 Type 2 diabetes mellitus without complications (principal); E78.5 Hyperlipidemia, unspecified
CPT/HCPCS: 36415; 80053; 80061; 82043; 82570; 83036

== ENCOUNTER 2022-05-27 15:23 | Outpatient (CLI) | payer OTHER, SELFPAY ==
--- NOTE | 2022-05-27 12:56 | DI.RAD_ITS ---
Exam(s) XR HIP LT COMPLETE AP PELVIS EXAM: XR HIP LT COMPLETE AP PELVIS CLINICAL HISTORY: PAIN LT HIP, M25.552. TECHNIQUE: 2D digital imaging was performed. COMPARISON: No exams were available for comparison FINDINGS: Three views: No evidence of pelvic nor hip fracture. Mild degenerative changes both hips. Benign bone island is noted in the superior acetabulum left hip. SI joints unremarkable. No osseous lesions. Bone densit y is age-appropriate. IMPRESSION: As above. DATA REPOSITORY: RADIATION DOSE DELIVERED:
--- OUTSIDE RECORDS SUMMARY | 2022-05-27 15:25 | XMS_ITS ---
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 7 15369972 central sleep apnea Problem Environmental V15.09 Active 736881 007 allergies Problem Chronic sinusitis, J32.9 Active 4 4530863 unspecified Problem 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 8262195 02 erectile dysfunction Problem Chronic rhinitis J31.0 Active 860 24731 Problem Obstructive sleep G47.33 Active 78 624624 apnea (adult) (pediatric) ALLERGIES Substance Reaction Event Type Date Status Ibuprofen SOB Drug Allergy August, Active latex rash Non Drug Allergy August, Active codeine GI Drug Allergy August, Active Advil Unknown Drug Allergy August, Active ENCOUNTERS Encounter Location Date Diagnosis [facility] [address] [place] [address] August, Jasen atment-emergent Road [address] central sleep ap jcarlos [place], [place] G47.39 [id number] [facility] [address] [place] [address] Jul, Obst ructive sleep apnea Road [address] (adult) (pediatr ic) [place], [place] G47.33 [id number] [facility] [address] Apr, Obst ructive sleep apnea Road [address] (adult) (pediatr ic) [place], [place] G47.33 ; Chronic rhinitis 217976405 J31.0 and Modera te persistent asthm a without complication J45 .40 [facility] [address] Oct, Road [place], [place] [id number] [facility] Nov, Road [place], [place] [id number] [address] Nov, [place], [place] [id number] [facility] Nov, Road [place], [place] [id number] [address] Oct, Dep ression with anxiety [place], [place] F41.[id number] Jun, [place], [place] [id number] [address] Jun, [place] [id number] [address] Apr, Dep ression with anxiety [place], [place] F41.8 ; Chron ic 290529612 sinusitis, unspe cified J32.9 and Drug-i nduced erectile dysfunc tion N52.[address] Mar, Dep ression with anxiety [place], [place] F41.[id number] Jan, Dep ression with anxiety [place] F41.8 [id number] [facility] Jan, Road [place], [place] [id number] [facility] [address] Dec, Road [place] [id number] [address] Dec, Chronic si nusitis, Otolaryngology [address] [place], unspecified J32.9 ; Nasal [place] [address] polyposis J33.9 ; Sensorineural he aring loss of both ear s H90.3 and Vertigo R42 [address] Nov, Dep ression with anxiety [place] F41.[id number] Nov, [place] [id number] [address] Nov, [place] [id number] [address] Nov, Dep ression with anxiety [place], [place] F41.8 [id number] [facility] [address] [place] [address] Oct, Road [place] [id number] [address] Sep, Dep ression with anxiety [place] F41.8 and Wea k urine [id number] stream R39.[address] August, Dep ression with anxiety [place], [place] F41.[id number] Jul, Dep ression with anxiety [place] F41.8 [id number] [facility] [address] Jul, Mario ruca [address] [place] [id number] Jul, [place], [place] [id number] [facility] [address] Jul, Ski n lesion of hand L98.[address] [place] [id number] Nov, ROU MANA MEDICAL EXAM (18 [place], [place] YRS AND OLDER ) V70.[id number] Nov, Anx iety 300.00 ; Asthma [place], [place] 493.[address] ; GERD [id number] (gastroesophagea l reflux disease) 530.81 ; Screening, lipid V77.91 ; Screening for en docrine, metabolic and im munity disorder V77.99 and Screening for pr ostate cancer V76.[address] Nov, [place], [place] [id number] [address] Nov, [place], [place] [id number] [facility] [address] [place] [address] Oct, Road [place] [id number] [address] August, Nasal poly posis 471.9 and Otolaryngology [address] [place], Sensorineura l hearing [place] [id number] loss NOS 389.10 [facility] [address] August, Road [address] [place] [id number] [facility] Jul, [address] [place] [id number] [facility] [address] May, Road [address] [place], [place] [id number] [facility] [address] [place] [address] May, Road [place] [id number] [facility] [address] [place] [address] Apr, [address] ru[address] sleep apnea Road [address] syndrome 327.23 ; Asthma [place], [place] 493.[address] and Chron ic 933412604 rhinitis [address] Feb, Benign par oxysmal Otolaryngology [address] [place], positional v ertigo 386.11 [place] [id number] ; Nasal polyposi s 471.9 and Sensorineura l hearing loss NOS 389.[address] Jan, Otolaryngology [address] [place], [place] [id number] [facility] [address] [place] [address] Jan, Sensorineural hearing [address] loss NOS 389.10 [place], [place] [id number] [address] Jan, Nasal poly posis 471.9 ; Otolaryngology [address] [place], [facility] parox ysmal [place] [id number] positional verti go 386.11 and Imbalance 78 1.2 [facility] [address] Oct, Road [address] [place] [id number] [address] Oct, Vertigo 78 0.4 Otol[address] [place] [id number] [address] Oct, Otolaryngology [address] [place], [place] [id number] [facility] Oct, Road [address] [place] [id number] [address] Oct, Road [address] [place], [place] [id number] [facility] Sep, Asth ma with exacerbation Road [address] 493.92 ; Environ mental [place] allergies V15.09 and [id number] Nasal polyposis 471.9 [facility] Sep, Asth ma with exacerbation Road [address] 493.92 ; Environ mental [place] allergies V15.09 and [id number] Nasal polyposis 471.9 [facility] [address] [facility] Sep, Road [address] [place], [place] [id number] [address] Jul, Otolaryngology [address] [place], [place] [id number] [facility] [address] [facility] Jul, Road [address] [place], [place] [id number] [facility] Jun, Obst ructive sleep apnea Road [address] syndrome 327.23 and [place] Fatigue 780.79 [id number] [facility] Jun, Road [address] [place], [place] [id number] [facility] May, [address] [place] [id number] [facility] [address] [facility] Apr, Road [address] [place], [place] [id number] [facility] [address] [place] [address] Mar, Road [address] [place], [place] [id number] [facility] [address] [facility] Feb, Obst ructive sleep apnea Road [address] syndrome 327.23 and [place] Chronic rhinitis 472.0 [id number] [facility] [address] [place] [address] Feb, Road [address] [place], [place] [id number] [address] Jun, Otolaryngology [address] [place], [place] [id number] [address] Mar, Cephalgia 784.0 Otol[address]ology [address] [place], [place] [id number] [facility] [address] [place] [address] Oct, SLEEP APNEA [place], [place] [address].[id number] Feb, Otolaryngology [address] [place], [place] [id number] [address] Feb, Mucositis (ulcerative), Otolaryngology [address] [place], nasal 478.11 [place] [id number] [address] Oct, Chronic si nusitis NOS Otolaryngology [address] [place], 473.9 ; Nasa l polyp NOS [place] [id number] 471.9 and Benign paroxysmal posit ional nystagmus 386.[address] Jul, Chronic si nusitis NOS Otolaryngology [address] [place], 473.9 ; Unsp ecified nasal [place] [id number] polyp 471.9 and Allergic rhinitis due to allergen 477.[address] Jun, Chronic si nusitis NOS Otolaryngology [address] [place], 473.9 ; Poly p of nasal [place] [id number] cavity NOS 471.9 and NASAL & SINUS DI S NEC 478.[address] Apr, CHRONIC SI NUSITIS NEC Otolaryngology [address] [place], 473.8 ; Nasa l polyp NOS [place] [id number] 471.9 and NASAL & SINUS DIS NEC 478.[address] Apr, Otolaryngology [address] [place], [place] [id number] [address] Sep, ROT ATOR CUFF SYND NOS Road [address] 726.10 [place], [place] [id number] [address] Sep, Rot ator cuff syndrome NOS Road [address] 726.10 [place], [place] [id number] [facility] [address] August, Loc alized superficial Road [address] swelling, mass, or lump [place], [place] 782.2 [id number] IMMUNIZATIONS Vaccine Route Administration Date Status [place] - Flu VACC 6 MONTHS > IM Intramuscular May 08, 2016 Admin istered Hepatitis B (adult) Unknown June 20, 2005 Administered Pneumovax [id number] Unknown Jan 18, 2002 Administe red Tdap - Adult Unknown Jan 29, 2012 Administered SOCIAL HISTORY Qualifiers Date Former Smoker REASON FOR REFERRAL FUNCTIONAL STATUS PLAN OF CARE Activity Details Follow Up 1 Year Reason: VITAL SIGNS Height 71 in 2021-09-17 Height 71 in 2020-07-24 Height 71 in 2018-05-03 Height 71 in 2016-05-08 Height 71 in 2016-02-11 Height 71 in 2016-01-01 Height 71 in 2015-12-14 Height 71 in 2015-10-05 Height 71 in 2015-08-31 Height 71 in 2015-08-17 Height 71 in 2015-08-03 Height 71 in 2015-07-27 Height 71 in 2014-12-08 Height 71 in 2014-12-01 Height 71 in 2014-09-13 Height 71 in 2014-05-12 Height 71 in 2014-02-21 Height 71 in 2014-02-06 Height 71 in 2013-11-08 Height 71 in 2013-10-10 Height 71 in 2013-09-26 Height 71 in 2013-03-09 Height 71 in 2010-11-04 Weight 227 lbs 2020-07-24 Weight 241 lbs 2018-05-03 Weight 244 lbs 2016-05-08 Weight 240 lbs 2016-02-11 Weight 230 lbs 2016-01-01 Weight 238.5 lbs 2015-12-14 Weight 242 lbs 2015-10-05 Weight 238 lbs 2015-08-31 Weight 237 lbs 2015-08-17 Weight 239 lbs 2015-08-03 Weight 230 lbs 2015-07-27 Weight 229 lb 8 oz lbs 2014-12-08 Weight 229 lb 6 oz lbs 2014-12-01 Weight 225 lbs 2014-09-13 Weight 230 lbs 2014-05-12 Weight 225 lbs 2014-02-21 Weight 225 lbs 2014-02-06 Weight 220 lbs 2013-11-08 Weight 225.2 lbs 2013-10-10 Weight 219.8 lbs 2013-09-26 Weight 220 lbs 2013-03-09 Weight 214 lbs 2010-11-04 Temperature Tympanic:99.3 degrees Fahrenheit 2013-09 Heart Rate 65 /min 2021-09-17 Heart Rate 68 /min 2020-07-24 Heart Rate 73 /min 2018-05-03 Heart Rate 93 /min 2016-05-08 Heart Rate 66 /min 2016-02-11 Heart Rate 72 /min 2016-01-01 Heart Rate 71 /min 2015-12-14 Heart Rate 66 /min 2015-10-05 Heart Rate 88 /min 2015-08-31 Heart Rate 90 /min 2015-08-17 Heart Rate 78 /min 2015-07-27 Heart Rate 78 /min 2014-12-08 Heart Rate 76 /min 2014-12-01 Heart Rate 78 /min 2014-09-13 Heart Rate 84 /min 2014-05-12 Heart Rate 78 /min 2014-02-21 Heart Rate 82 /min 2014-02-06 Heart Rate 72 /min 2013-11-08 Heart Rate 71 /min 2013-10-10 Heart Rate 100 /min 2013-09-26 Heart Rate 89 /min 2013-03-09 Heart Rate 86 /min 2010-11-04 Heart Rate 76 /min 2010-03-11 Heart Rate 72 /min 2009-11-01 Heart Rate 68 /min 2009-05-17 Oximetry 96 2021-09-17 Oximetry 98 2020-07-24 Oximetry 95 2018-05-03 Oximetry 95 2016-05-08 Oximetry 97 2016-02-11 Oximetry 97 2015-12-14 Oximetry 97 2015-10-05 Oximetry 95 2015-08-17 Oximetry 98 RA 2015-07-27 Oximetry 96 2014-12-08 Oximetry 96 2014-12-01 Oximetry 95 2014-05-12 Oximetry 96 2013-10-10 Oximetry 94 2013-09-26 Oximetry 97 2013-03-09 Oximetry 97 2010-11-04 Respiratory Rate 16 /min 2018-05-03 Respiratory Rate 16 /min 2016-02-11 Respiratory Rate 16 /min 2016-01-01 Respiratory Rate 16 /min 2015-10-05 Respiratory Rate 16 /min 2014-09-13 Respiratory Rate 16 /min 2014-05-12 Respiratory Rate 16 /min 2014-02-21 Respiratory Rate 16 /min 2014-02-06 Respiratory Rate 16 /min 2013-11-08 Respiratory Rate 16 /min 2013-03-09 Respiratory Rate 12 /min 2010-11-04 Respiratory Rate 15 /min 2010-03-11 Respiratory Rate 16 /min 2009-11-01 Respiratory Rate 16 /min 2009-05-17 BMI 31.66 kg/m2 2020-07-24 BMI 33.61 kg/m2 2018-05-03 BMI 34.03 kg/m2 2016-05-08 BMI 33.47 kg/m2 2016-02-11 BMI 32.07 kg/m2 2016-01-01 BMI 33.26 kg/m2 2015-12-14 BMI 33.75 kg/m2 2015-10-05 BMI 33.19 kg/m2 2015-08-31 BMI 33.05 kg/m2 2015-08-17 BMI 33.33 kg/m2 2015-08-03 BMI 32.07 kg/m2 2015-07-27 BMI 32.01 kg/m2 2014-12-08 BMI 31.99 kg/m2 2014-12-01 BMI 31.38 kg/m2 2014-09-13 BMI 32.07 kg/m2 2014-05-12 BMI 31.38 kg/m2 2014-02-21 BMI 31.38 kg/m2 2014-02-06 BMI 30.68 kg/m2 2013-11-08 BMI 31.41 kg/m2 2013-10-10 BMI 30.65 kg/m2 2013-09-26 BMI 30.68 kg/m2 2013-03-09 BMI 29.84 kg/m2 2010-11-04 Blood pressure systolic 112 mm Hg 2021-09-17 Blood pressure diastolic 68 mm Hg 2021-09-17 MEDICATIONS Medication Instructions Dosage Frequency Start End Duration Statu s Date Date Atorvastatin Orally Once a 1 tablet 24h 30 day(s) Ac tive Calcium 20 MG day Ventolin HFA 108 Inhalation every 2 puffs as 4h 30 day(s) Active (90 Base) 4 hrs needed MCG/ACT Lexapro 10 MG Orally Once a 1 and one 24h Jul, Ac tive day half tablet 2015 Dulera 200-5 Inhalation Twice 2 puffs 12h 90 days Ac tive MCG/ACT a day Singulair 10 MG Orally Once a 1 tablet in 24h Active day the evening Pantoprazole Orally Once a 1 tablet 24h 30 days Acti ve Sodium 40 MG day metFORMIN HCl Orally Once a 1 tablet 24h 30 day(s) A ctive 500 MG day with a meal PROCEDURES Procedure Date Ordered Result Body Site EXCISION BENIGN LESION 1.1-2.0 CM July 27, 2015 COMPREHENSIVE AUDIOMET THRESH AND SPEECH Feb 07, 2014 IMMUNIZATION ADMINISTRATION May 08, 2016 [place] - Flu VACC 6 MONTHS > May 08, 2016 EXCISN ONOFRE LESION; DIAM <= 0.5CM August 18, 2008 RESULTS Name Result Date Reference Range LIPID PROFILE 2014-12-06 CHOLESTEROL 181 129-209 TRIGLYCERIDES 143 48-210 HDL 46 40-60 LDL (CALCULATED) 106 RISK RATIO 3.9 RISK INTERP RISK MALE FEMALE 1/2 average 3.4 3.3 Average 5.0 4.4 2x Average 9.6 COMPREHENSIVE METABOLIC PROFILE 2014-12-06 SODIUM 140 136-145 POTASSIUM 4.2 3.5-5.1 CHLORIDE 104 98-107 CO2 25 21-32 CALCIUM 8.6 8.5-10.1 BUN 19 7-18 CREATININE 1.11 0.70-1.30 TOTAL BILIRUBIN 0.5 0.0-1.0 TOTAL PROTEIN 6.9 6.4-8.2 ALT 44 12-78 AST 21 15-37 A/GAP 11.0 3.0-12.0 B/CR 17.1 8.0-20.0 OSMOLARITY 283 275-295 GLOBULIN 3.3 2.3-3.5 A/G 1.1 1.0-2.5 PSA - SCREENING 2014-12-06 PSA (SCREEN) 0.950 <=3.500 PSA H AGE SPECIFIC REFERENCE RANGES AGE (yr) SERUM PSA (ng/mL) 40-49 0.0 - 2.5 XR CHEST PA&LAT 2013-10-10 CBC, WITH MANUAL DIFF 2013-10-10 WBC 12.0 4.8-10.8 RBC 5.29 4.70-6.10 HGB 15.7 14.0-18.0 HCT 48.7 42.0-52.0 MCV 92.1 80.0-94.0 MCH 29.7 27.0-31.0 MCHC 32.2 32.0-37.0 RDW-CV 14.0 11.5-14.5 PLT 320 130-400 MPV 9.8 7.4-10.4 MANUAL DIFF MANUAL DIFFERENTIAL SEGS 69 42-75 BANDS 0-6 LYMPHS 8 20-51 SHLOMO. LYMPHS 5 <=1 MONOS 13 2-9 EOS 5 0-3 BASO 0-1 METAS MYELOS NRBC PLT ESTIMATE ADEQUATE ADEQUATE RBC MORPH NORMAL NORMAL ANISO POIK MICRO MACRO HYPO POLYCHROM ANCA PANEL ([id number]) 2013-10-10 Antimyeloperoxidase (MPO) Abs <9.0 0. 0-9.0 Antiproteinase 3 (AK-3) Abs <3.5 0.0- 3.5 Cytoplasmic (C-ANCA) <1:20 Neg:<1:20 Perinuclear (P-ANCA) <1:20 Neg:<1:20 Atypical pANCA <1:20 Neg:<1:20 ASPERGILLUS ANTIBODY EVALUATION 2013-10-10 ([id number]) Aspergillus fumigatus Negative Neg:<1:1 Aspergillus flavus Negative Neg:<1:1 Aspergillus niger Negative Neg:<1:1 IMMUNOGLOBULIN E ([id number]) 2013-10-10 Immunoglobulin E, Total 316 0-100 ALLERGEN PANEL - ZONE 1 ([id number]) 2013-10-10 R022-EhM D farinae Mite <0.10 Class 0 F937-HhK Cat Dander <0.10 Class 0 R007-NsT Dog Dander <0.10 Class 0 I114-HnX Bermuda Grass <0.10 Class 0 O153-YoU Bluegrass, [facility] <0.10 Cla ss 0 H886-JaE Bahia Grass <0.10 Class 0 H355-WuB Cockroach, Cymraes <0.10 Cla ss 0 P155-KrI Penicillium chrysogen <0.10 C lass 0 D494-XaR Cladosporium herbarum <0.10 C lass 0 A868-KfV Aspergillus fumigatus <0.10 C lass 0 I574-DpM Mucor racemosus <0.10 Class 0 W077-JsV alternaria alternata <0.10 Cl ass 0 T404-SzA Stemphylium herbarum <0.10 Cl ass 0 T250-HaZ Common Silver Birch <0.10 Cla ss 0 Z580-ApF Slidell, White <0.10 Class 0 L708-XdP Elm, Cymraes <0.10 Class 0 A725-SyI Herminio, White <0.10 Class 0 P946-AcQ Maple/Granite <0.10 Class 0 E955-IcD Hazelnut Tree <0.10 Class 0 O442-UsN Reynolds, White <0.10 Class 0 N995-AkY White [place] <0.10 Class 0 A642-KmB [place], Mountain <0.10 Class 0 U428-AkH Ragweed, Short <0.10 Class 0 Y975-OuJ Mugwort <0.10 Class 0 O118-GzC Plantain, Uzbek <0.10 Class 0 C436-JzP Pigweed, Rough <0.10 Class 0 F972-RoD Sheep [place] <0.10 Class 0 F012-CxH Nettle <0.10 Class 0 REASON FOR VISIT NCSLEEP 1 yr CPAP follow up, NCSLEEP 1 yr CPAP fu, NCSLEEP- CPAP 1 yr follow up , NCSLEEP fu cpap last seen by Dr Howell 04/2018 (need SD card), NCPUL CPAP f/up, Dulera refil, ent hearing fu, Review of compliance download, Refill Pantoprazole, mask, pc 6 mo f/u, pc 6 mo f/u, Rx refill, Re:RE:New Refill R equest, New Refill Request, NCPC 3 month F/Up, pc 3 mo f/u, refills, PC/2 MO FUV, refill , Review ofcompliance download, history of vertigo, history of sinusitis, history of allergic rhinitis, ent-sinus/vertigo f/u, PC fu meds, PC FUV Medication, depression, script refill , refill, Dulera, PC/6 WK FUV, ent-1 yr fu w/audio-pt wanted to cx appt for now-mk, PC FUV Meds, PC/MEDS, NANO-Sutures out, refils, NANO- wart removal hand, PC ANNUAL PHYSICAL EXAM, PC MEDS REVIEW / ROUTINE CHECK-UP, ECW UPDATE [employer] MEDICAL, Need OUTDOOR EMERGENCY CARE TECHNICIAN appointment, Review of compliance download, allergic rhinitis, nasal polyposis, chronic sinusitis, Shortness of breath, Review of compliance download on ASV, Sleep Study Ready for Review, PSG, NCPULM, vertigo, nasal polyps, AUD-JAVIER-AUD, vertigo, vague imbalance, nasal congestion, FMLA PAPERWORK, ent-dizziness, vertigo, vertigo, script , Cellulitis, NCPUL shortness of breath, NCPUL wheezing and breathing , Compliance download review, RX refill, Compliance download review, Review of HST and compliance download, Compliance download review, Sinus infection, APAP download review, Review of compliance download and overnight oximetry, NPCUL sleep apnea, Neti Pot , script refill, left greater than right sinus pressure for three days, SLE new pt, ENT, right nasal tenderness and swelling, nasal congestion, BPPV, ENT 4 WK SINUS, nasal congestion, recheck sinuses-three weeks, sinus, MRI f/u, Shoulder issues - shoulder feels weak and sore sore to the touch and on and off pain hurts more to push not to pull, excision L neck lesion Insurance Providers [facility] Health Member Patient Patient Patient Patient Patient Subscriber Subscriber Subscriber Group Insurance Plan Plan Plan Plan ID Relationship Address Phone Name Date of ID Name Date of No Type Insurance Insurance Insurance Coverage to Subscriber Address Phone Name Dates HEALTHPLAN [phone] HEALTHPLAN self Yannick 1960 [id number] S INC [id number] [place] [address] HEALTH [phone] HEALTH Yannick [id number] [place] [employer]NER [id number] PLANS INC [id number] PLANS INC [facility] Renée CHOPRA [id number] HEALTH [phone] HEALTH self Yannick [id number] [place] [employer]NER [id number] PLANS INC [id number] PLANS INC [facility] KEYSHA [id number] CBA BLUE [address] CBA BLUE self Yannick [id number] [id number]
== END 2022-05-27 15:43 ==
LOC: DI 15:23
PROVIDERS: PCP Nurse Practitioner Primary Care; Visit Provider Nurse Practitioner Acute Care
DX: M25.552 Pain in left hip (principal); M16.12 Unilateral primary osteoarthritis, left hip
CPT/HCPCS: 73502

== ENCOUNTER 2022-05-30 16:13 | Outpatient (CLI) | payer OTHER, SELFPAY ==
[2022-05-30 15:35] LABS: ALT 25 U/L (16-63); AST 22 U/L (15-37); Albumin 3.7 g/dL (3.4-5.0); Alkaline Phosphatase 114 U/L (46-116); Anion Gap 8.5 mmol/L (3-11); BUN 14 mg/dL (7-18); Bilirubin, Total 0.6 mg/dL (0.2-1.0); CO2 25.5 mmol/L (21.0-32.0); Calcium 9.1 mg/dL (8.5-10.1); Calculated LDL 50 mg/dL (<100); Chloride 103 mmol/L (98-107); Cholesterol 114 mg/dL (<200); Folate 15.6 ng/mL (8.6-20.0); Glucose 88 mg/dL (74-106); HDL Cholesterol 51 mg/dL (40-60); Potassium 3.8 mmol/L (3.5-5.1); Sodium 137 mmol/L (136-145); Total Protein 7.3 g/dL (6.4-8.2); Triglyceride 69 mg/dL (<150)
[2022-05-30 15:55] LABS: Hemoglobin A1C 6.1 % (<5.7)
== END 2022-05-30 16:14 | disposition home or self-care (01) ==
LOC: LBO 16:13
PROVIDERS: PCP Nurse Practitioner Primary Care; Visit Provider Nurse Practitioner Primary Care
DX: E11.9 Type 2 diabetes mellitus without complications (principal); E53.8 Deficiency of other specified B group vitamins; E78.5 Hyperlipidemia, unspecified
CPT/HCPCS: 36415; 80053; 80061; 82746; 83036

== ENCOUNTER 2022-08-22 16:36 | Outpatient (CLI) | payer OTHER, SELFPAY ==
[2022-08-22 14:12] LABS: Abs Immature Grans 0.12 10^3/uL (0.0-0.06); Absolute Basophil Count 0.04 10^3/uL (0.0-0.2); Absolute Lymphocyte Count 3.47 10^3/uL (1.2-3.4); Absolute Monocyte Count 1.45 10^3/uL (0.1-0.8); Basophils % 0.3; Eosinophils % 5.8; HCT 50.2 % (40.0-50.0); HGB 16.8 g/dL (13.5-17.5); Immature Grans % 0.8; Lymphocytes % 23.5; MCH 30.5 pg (27.0-33.0); MCHC 33.5 % (32.0-36.0); MCV 91 fL (80-95); MPV 9.4 fL (8.0-11.0); Monocytes % 9.8; Neutrophils % 59.8; Platelet Count 335 10^3/uL (130-400); RDW 12.9 % (11.8-14.1); RDW-SD 43.9 fL; WBC 14.77 10^3/uL (4.4-10.8)
[2022-08-22 14:16] LABS: Absolute Eosinophil Count 0.86 10^3/uL (0.0-0.7); Absolute Neutrophil Count 8.83 10^3/uL (1.2-6.7); Hemoglobin A1C 6.6 % (<5.7)
[2022-08-22 15:00] LABS: ALT 32 U/L (16-63); AST 17 U/L (15-37); Albumin 3.7 g/dL (3.4-5.0); Alkaline Phosphatase 120 U/L (46-116); Anion Gap 8.7 mmol/L (3-11); BUN 14 mg/dL (7-18); Bilirubin, Total 0.6 mg/dL (0.2-1.0); CO2 29.3 mmol/L (21.0-32.0); CREATININE 1.2 mg/dL (0.70-1.30); Calcium 8.9 mg/dL (8.5-10.1); Calculated LDL 41 mg/dL (<100); Chloride 103 mmol/L (98-107); Cholesterol 105 mg/dL (<200); Estimated GFR 68.38 (mL/min/1.73m2); Glucose 100 mg/dL (74-106); HDL Cholesterol 48 mg/dL (40-60); Potassium 3.8 mmol/L (3.5-5.1); Sodium 141 mmol/L (136-145); TSH 0.91 uIU/mL (0.36-3.74); Total Protein 7.3 g/dL (6.4-8.2); Triglyceride 83 mg/dL (<150)
[2022-08-22 18:25] LABS: Amylase 60 U/L (25-115); Lipase 65 U/L (16-77)
== END 2022-08-22 16:37 | disposition home or self-care (01) ==
LOC: LBO 16:37
PROVIDERS: PCP Nurse Practitioner Primary Care; Visit Provider Nurse Practitioner Primary Care
DX: R11.2 Nausea with vomiting, unspecified (principal); E11.9 Type 2 diabetes mellitus without complications; E78.5 Hyperlipidemia, unspecified
CPT/HCPCS: 36415; 80053; 80061; 83690; 82150; 83036; 84443; 85025

== ENCOUNTER 2023-01-06 12:18 | Outpatient (CLI) | payer OTHER, SELFPAY ==
[2023-01-06 08:55] LABS: Hemoglobin A1C 7.4 % (<5.7)
== END 2023-01-06 12:19 | disposition home or self-care (01) ==
LOC: LBO 12:18
PROVIDERS: PCP Nurse Practitioner Primary Care; Visit Provider Nurse Practitioner Primary Care
DX: E11.9 Type 2 diabetes mellitus without complications (principal)
CPT/HCPCS: 36415; 83036

== ENCOUNTER 2023-06-30 09:28 | Outpatient (CLI) | payer OTHER, SELFPAY ==
[2023-06-30 09:05] LABS: Hemoglobin A1C 9.6 % (<5.7)
[2023-06-30 09:21] LABS: ALT 30 U/L (16-63); AST 15 U/L (15-37); Albumin 3.4 g/dL (3.4-5.0); Alkaline Phosphatase 121 U/L (46-116); Anion Gap 7.7 mmol/L (3-11); BUN 19 mg/dL (7-18); Bilirubin, Total 0.7 mg/dL (0.2-1.0); CO2 29.3 mmol/L (21.0-32.0); CREATININE 1.1 mg/dL (0.70-1.30); Calcium 9.2 mg/dL (8.5-10.1); Calculated LDL 67 mg/dL (<100); Chloride 101 mmol/L (98-107); Cholesterol 143 mg/dL (<200); Estimated GFR 75.43 (mL/min/1.73m2); Folate 8.6 ng/mL (8.6-20.0); Glucose 274 mg/dL (74-106); HDL Cholesterol 47 mg/dL (40-60); Magnesium 1.8 mg/dL (1.8-2.4); Potassium 3.9 mmol/L (3.5-5.1); Sodium 138 mmol/L (136-145); TSH (W/Ref FT4) 2.17 uIU/mL (0.36-3.74); Total Protein 7.1 g/dL (6.4-8.2); Triglyceride 145 mg/dL (<150)
== END 2023-06-30 09:29 | disposition home or self-care (01) ==
LOC: LBO 09:29
PROVIDERS: PCP Nurse Practitioner Primary Care; Visit Provider Nurse Practitioner Acute Care
DX: E11.9 Type 2 diabetes mellitus without complications (principal); E53.8 Deficiency of other specified B group vitamins; I48.92 Unspecified atrial flutter
CPT/HCPCS: 36415; 80053; 80061; 82746; 83036; 83735; 84443

== ENCOUNTER 2023-07-03 09:43 | Outpatient (CLI) | payer OTHER, SELFPAY | END 2023-07-03 09:44 | disposition home or self-care (01) | LOC: CARDOPNVT 09:43 | PROVIDERS: PCP Nurse Practitioner Primary Care; Visit Provider Internal Medicine Cardiovascular Disease | DX: I49.8 Other specified cardiac arrhythmias (principal) | CPT/HCPCS: 93270 ==

== ENCOUNTER 2023-07-27 08:20 | Outpatient (CLI) | payer OTHER, SELFPAY ==
--- NOTE | 2023-07-27 09:21 | W.CARDEVENT ---
Date of service: 07/27/23 Time of Service: 09:22 Cardiac Event Recorder Referring Provider:: Carlitos Byrd Indications:: Arrhythmia Cardiac Event Note: This is a cardiac event monitor. Patient was monitored for 10 days Rhythm throughout was sinus with an average heart rate of 64. Minimum was 44, maximum 158 There were rare ventricular ectopic beats Episode labeled atrial fibrillation appeared to be sinus tachycardia with atrial premature beats and artifact No patient symptoms were reported
== END 2023-07-27 08:21 | disposition home or self-care (01) ==
LOC: CARDOPNVT 08:20
PROVIDERS: PCP Nurse Practitioner Primary Care; Visit Provider Internal Medicine Cardiovascular Disease
DX: I49.8 Other specified cardiac arrhythmias (principal)

== ENCOUNTER 2023-08-25 05:42 | Outpatient (CLI) | payer OTHER, SELFPAY ==
[2023-08-25 12:14] LABS: Abs Immature Grans 0.08 10^3/uL (0.0-0.06); Absolute Basophil Count 0.07 10^3/uL (0.0-0.2); Absolute Lymphocyte Count 2.34 10^3/uL (1.2-3.4); Absolute Monocyte Count 1.13 10^3/uL (0.1-0.8); Absolute Neutrophil Count 7.17 10^3/uL (1.2-6.7); Basophils % 0.6 %; Eosinophils % 2.4 %; HCT 51.8 % (40.0-50.0); Immature Grans % 0.7 %; Lymphocytes % 21.2 %; MCH 30.7 pg (27.0-33.0); MCHC 32.8 % (32.0-36.0); MCV 94 fL (80-95); MPV 10.2 fL (8.0-11.0); Monocytes % 10.2 %; Neutrophils % 64.9 %; Platelet Count 357 10^3/uL (130-400); RBC 5.54 10^6/uL (4.36-5.78); RDW 13.1 % (11.8-14.1); RDW-SD 45.1 fL; WBC 11.05 10^3/uL (4.4-10.8)
[2023-08-25 12:15] LABS: Absolute Eosinophil Count 0.27 10^3/uL (0.0-0.7)
[2023-08-25 12:33] LABS: COMMENT (LAB VIEW ONLY) 201.12 mg/dL; Microalb ug/mg Crea 4.5 ug/mg Cr
[2023-08-26 21:01] LABS: Fructosamine 225 mcmol/L (200 - 285)
== END 2023-08-25 05:43 | disposition home or self-care (01) ==
LOC: LOS 05:42
PROVIDERS: PCP Nurse Practitioner Family; Visit Provider Nurse Practitioner Acute Care
DX: E11.9 Type 2 diabetes mellitus without complications (principal)
CPT/HCPCS: 36415; 82043; 82570; 82985; 85025

== ENCOUNTER 2024-09-29 08:37 | Outpatient (CLI) | payer OTHER, SELFPAY ==
[2024-09-29 08:08] LABS: Hemoglobin A1C 5.5 % (<5.7)
[2024-09-29 10:31] LABS: Calculated LDL 93 mg/dL (<100); Cholesterol 163 mg/dL (<200); HDL Cholesterol 54 mg/dL (>or=40); Triglyceride 82 mg/dL (<150)
[2024-09-29 19:22] LABS: PSA, Screening 1.1 ng/mL (<=4.5)
== END 2024-09-29 08:38 | disposition home or self-care (01) ==
LOC: LBO 08:37
PROVIDERS: PCP Nurse Practitioner Family; Visit Provider Nurse Practitioner Family
DX: Z13.220 Encounter for screening for lipoid disorders (principal); Z12.5 Encounter for screening for malignant neoplasm of prostate; Z13.1 Encounter for screening for diabetes mellitus; E11.9 Type 2 diabetes mellitus without complications
CPT/HCPCS: 36415; 80061; 84153; 83036

== ENCOUNTER 2025-03-10 09:52 | Day surgery (SDC) | payer OTHER, SELFPAY ==
--- NOTE | 2025-03-09 15:12 | PDOC.DSDIS_ITS ---
Date of service: 03/10/25 Discharge Plan Disposition Patient Disposition: Home Condition: Good Discharge Details Attending Provider: Wood Eisenberg Primary Care Provider: Chin Sousa Home Meds and New Rx's Prescriptions: Continued acetaminophen [Tylenol] 325 mg capsule 325 mg PO ONCE PRN semaglutide 2 mg/dose (8 mg/3 mL) pen injector 2 mg subcut QWEEK Qty: 9 3RF diltiazem HCl 60 mg tablet 60 mg PO ONCE PRN Rx Instructions: Per Richard Momin. montelukast [Singulair] 10 mg tablet 10 mg PO DAILY Qty: 90 3RF Dulera 8.8 GM HFA aerosol inhaler 2 puff Inhalation BID Patient Comments: pt was using as needed and hasn't used in quite a while. (DME) Blood Glucose Test Strip See Rx Instructions .Route Rx Instructions: As directed tadalafil [Cialis] 10 mg tablet 10 mg PO DAILY PRN Rx Instructions: administer approximately 30min before sexual activity; do not use more than 1 dose per 24hrs albuterol sulfate [Ventolin HFA] 90 mcg/actuation HFA aerosol inhaler 2 puff inhalation Q4H PRN Flonase Sensimist 27.5 mcg/actuation spray,suspension 1 spray intranasal DAILY Rx Instructions: into each nostril (DME) lancets Misc See Rx Instructions .Route Rx Instructions: As directed omeprazole 20 mg capsule,delayed release(DR/EC) 20 mg PO DAILY Qty: 90 3RF Eliquis 5 mg tablet 5 mg PO BID Qty: 180 3RF Patient Comments: pt states he is only taking 1 tab daily escitalopram oxalate 20 mg tablet 20 mg PO DAILY Qty: 90 3RF Discharge Instructions Additional Instructions: Yannick, it was good to see you and Latosha today, and hope you have a nice weekend after the procedure. Things went very smoothly. Your prep was excellent, and I could see everything fine. I saw no signs of any polyps today. Based on the adenomatous polyps that you had removed previously, I would recommend another 5- year interval, we can reassess after that. If you need anything or have any questions at all, please do not hesitate to ask at any point. 1. If tolerated, consume a soft, low fiber diet for 1-2 days. [address] not drive, drink alcohol, operate machinery, make critical decisions, or do activities that require coordination or balance for 24 hours. 3. Because air was put into your colon during the procedure, expelling air from your rectum (passing gas or farting) is normal. 4. You may not have a bowel movement for 1-3 days because of the colonoscopy prep. This is normal. 5. Go directly to the emergency room if you notice any of the following: Develop chills (warm to touch), or if you have a thermometer and your temperature is above 101 Difficulty breathing or difficultly swallowing Persistent vomiting Severe abdominal pain, other than gas cramps Severe chest pain Black, tarry stools Any bleeding – exceeding one tablespoon 6. Call your physician if the site where your intravenous was started becomes red, swollen, painful, and warm to touch. 7. Your physician has reviewed your pre-procedure medications. Please continue to take those medications as previously ordered. You will be given specific information/education regarding any changes to your medications before leaving. Stand Alone Forms: Anesthesia Discharge Inst., Antoinette Meléndez (DSU), Portal Information Activity:: Activity as Tolerated Diet:: As Tolerated Discharge Orders Discharge Orders: Discharge Order (Routine); Ordered 03/09/25 Ordered By: Wood Eisenberg DS: Diagnosis Discharge Diagnosis (1) Encounter for screening colonoscopy: Status: Acute Asessment and Plan: Negative screening colonoscopy; recommend a 5-year interval for next
--- NOTE | 2025-03-09 15:13 | W.COLOREPORT ---
Date of service: 03/10/25 Time of Service: 12:50 Colonoscopy Report Date of procedure: 03/10/25 Pre-op diagnosis general: Screening colonoscopy Post-op diagnosis procedure note: other (Negative screening colonoscopy) Procedure: Colonoscopy Surgeon: Wood Eisenberg Anesthesia Type: General:No Airway Estimated blood loss (mL): 0 Pathology: none sent Complications: None Disposition: same day Indications: Yannick is a 64-year-old male who needs his next screening colonoscopy Prep: Miralax/Dulcolax Procedure Start Time: 12:18 Procedure End Time: 12:45 Retraction Time: 21 Findings: Negative screening colonoscopy Procedure Description: After the induction of anesthesia, and with Yannick in left lateral decubitus position, I began by performing an external anorectal exam. Perineum and skin were normal, as was the anal verge. There was no evidence of external hemorrhoids. Next, I performed a digital rectal exam. I did not appreciate any abnormal findings. Next, I advanced a colonoscope into the rectal vault. I performed retroflexion. This appeared normal. Using irrigation, I then advanced the colonoscope beyond the rectal folds and into the sigmoid colon before advancing towards the cecum. The quality of the prep was excellent. The scope was noted to be in the cecum by identification of the ileocecal valve and appendiceal orifice. I then began withdrawing the colonoscope using repeated irrigation as necessary for full evaluation of the colonic mucosa. Once the scope was withdrawn to the level of the rectum, great care was taken to examine portions of the rectal folds. I saw no signs of any tumors, polyps, or any other worrisome pathology. Finally, the scope was withdrawn and the patient was brought to the same-day surgery recovery unit as the anesthetic wore off. The findings and instructions were shared with the patient prior to discharge. [place] Bowel Prep [place] Bowel Prep Right Colon: 3 Left Colon: 3 Transverse Colon: 3 Total Score: 9
[2025-03-10 10:10] VITALS: BP 112/72; PULSE 70; RESP 18; TEMP 37; O2SAT 98
[2025-03-10] MEDS: Lactated Ringers 1,000 ML 80 ML IV (10:22)
--- NOTE | 2025-03-10 12:07 | W.ANESPRE ---
General Info Date of Service Date Performed: 03/10/25 Height: 5 ft 9 in Weight: 94.5 kg Body Mass Index (BMI): 30.7 Surgical Procedure: Operation Date: 03/10/25 11:20 Proposed Procedure Side Surgeon p Colonoscopy Wood Eisenberg MD Actual Procedure Side Surgeon p Colonoscopy Not Applicable Wood Eisenberg MD Meds Allergies and Home Medications Allergies Allergy/AdvReac Type Severity Reaction Status Date / Time bupropion (From Wellbutrin) Allergy shakes/gitt Verified 03/10/25 10:16 aby ibuprofen Allergy SOB Verified 03/10/25 10:16 latex Allergy RASH Verified 03/10/25 10:16 lisinopril Allergy Coughing Verified 03/10/25 10:16 venlafaxine Allergy nervousness, Verified 03/10/25 10:16 jitters codeine AdvReac GI Verified 03/10/25 10:16 Home Medication Medication Instructions Recorded mometasone-formoterol HFA 200 2 puff inhalation BID 12/01/13 mcg-5 mcg/actuation aerosol inhaler (Dulera) albuterol sulfate 90 mcg/actuation 2 puff inhalation Q4H PRN 06/14/21 aerosol inhaler (Ventolin HFA) blood sugar diagnostic (Blood 06/14/21 Glucose Test strips) tadalafil 10 mg tablet (Cialis) 10 mg PO DAILY PRN 06/14/21 fluticasone furoate 27.5 1 spray intranasal DAILY 08/12/21 mcg/actuation nasal spray,suspension (Flonase Sensimist) lancets 08/12/21 acetaminophen 325 mg capsule 325 mg PO ONCE PRN 08/21/21 (Tylenol) diltiazem HCl 60 mg tablet 60 mg PO ONCE PRN 09/25/23 semaglutide 2 mg/dose (8 mg/3 mL) 2 mg (0.75 mL) subcut QWEEK #9 mL 05/06/24 subcutaneous pen injector omeprazole 20 mg capsule,delayed 20 mg PO DAILY #90 caps 09/30/24 release apixaban 5 mg tablet (Eliquis) 5 mg PO BID #180 tabs 12/13/24 montelukast 10 mg tablet 10 mg PO DAILY #90 tabs 02/07/25 (Singulair) escitalopram oxalate 20 mg tablet 20 mg PO DAILY #90 tabs 02/20/25 Current Visit Medications: Current Medications Generic Name Dose Route Start Last Admin Trade Name Paulq PRN Reason Stop Dose Admin Ringer's Solution 1,000 mls @ 80 mls/hr 03/10/25 06:00 03/10/25 10:22 IV 03/10/25 23:59 80 mls/hr INFUSION GREGORY Administration IV Miscellaneous Supplies 1 each 03/10/25 06:00 Iv Access IV 03/10/25 23:59 DIRECTED GREGORY Sodium Chloride 0 ml 03/10/25 06:00 Normal Saline Flush 10 Ml Syr IV 03/10/25 23:59 PRN PRN Sodium Chloride 0 ml 03/10/25 06:00 Normal Saline 10 Ml Vial IJ 03/10/25 23:59 DIRECTED PRN Sterile Water 0 ml 03/10/25 06:00 Water,Injection,Sterile 10 Ml Vial IJ 03/10/25 23:59 DIRECTED PRN PFSH Active Problems Active Problems: Problem Status Onset Code Encounter for screening colonoscopy Acute Z12.11 Vertigo Acute R42 Folic acid deficiency Acute E53.8 Obstructive sleep apnea Chronic 12/01/13 G47.33 Obesity Chronic E66.9 Type 2 diabetes mellitus Acute E11.9 Mixed anxiety and depressive disorder Acute F41.8 Incomplete right bundle branch block Acute I45.10 Impairment of balance Acute R26.89 Environmental allergies Acute Z91.09 Chronic rhinitis Acute J31.0 A-fib Chronic I48.91 Asthma Chronic 07/13/12 J45.909 Atrial flutter by electrocardiogram Acute I48.92 Sensorineural hearing loss Acute H90.5 Hyperplastic colon polyp Acute K63.5 Tubular adenoma of colon Acute D12.6 Medical History Medical History Benign paroxysmal positional vertigo Nasal polyp Periungual wart H/O erectile dysfunction drug SSRI induced GERD (gastroesophageal reflux disease) Surgical History Surgical History H/O nasal polypectomy H/O hernia repair 1987 S/P colonoscopy (~03/2010) Tobacco Smoking/Tobacco Use Status: Former Tobacco Use Passive smoking exposure: Yes Second hand exposure: No Alcohol Alcohol Intake: current Alcohol intake frequency: holidays/special occasions only Alcohol type: hard liquor Substance Use Substance use: Never Substance use type: does not use Vital Signs and Lab Results Vital Signs Most Recent Vital Signs in EMR: Most Recent Vital Signs Temp Pulse Resp BP Pulse Ox 37.0 C 70 18 112/72 98 03/10/25 10:10 03/10/25 10:10 03/10/25 10:10 03/10/25 10:10 03/10/25 10:10 Anesthesia Assessment and Plan Anesthesia History Personal History: No History of Anesthesia Complications Family History: No Family History of Anesthesia Complications Exercise Tolerance Exercise Tolerance: Metabolic Equivalents>4 Pertinent Negatives Pertinent Negatives: No Symptoms of GERD (Rx) Cardiac & Pulmonary Exam Cardiac Exam: Normal S1/S2 Heart Sounds Pulmonary Exam: Clear Bilateral Breath Sounds Implantable Cardiac Device Does patient have a Pacemaker or an ICD?: No Airway Exam Known Difficult Airway: No Mallampati Class: 2 Mouth Opening: Normal (> 3cm) Thyromental Distance: Greater than 3 cm Neck Range of Motion: Full ROM Neck Circumference: Normal Teeth Condition: Normal Dentition ASA Classification ASA Score: ASA 2 Emergency Case?: No NPO Status NPO Status: NPO Clears >2 hours, Solids >8 hours Anesthesia Plan Resuscitation Status: Full Code Anesthesia Technique: General Anesthesia Airway Planned: Natural Airway Monitors Used: Standard Monitors
[2025-03-10 12:08] VITALS: BMI 30.7
[2025-03-10 12:49] VITALS: BP 87/59; PULSE 66; RESP 16; TEMP 36.6; O2SAT 95
[2025-03-10 13:11] VITALS: BP 110/64; PULSE 60; RESP 16; TEMP 36; O2SAT 96
--- NOTE | 2025-03-10 13:23 | W.ANESPOSTOP ---
Postoperative Evaluation Date, Time and Location Date Performed: 03/10/25 Time Performed: 13:23 Patient Location: Day Surgery Unit Vital Signs Most Recent Imported Vital Signs: Most Recent Vital Signs Temp Pulse Resp BP Pulse Ox 36 C L 60 16 87/59 L 96 03/10/25 13:11 03/10/25 13:11 03/10/25 13:11 03/10/25 12:49 03/10/25 13:11 Pain Score Most Recent Pain Score: Most Recent Pain Score Pain Level 0 03/10/25 12:49 Assessment Mental Status: Awake (Alert & Oriented to Patient Baseline) Airway and Respiratory Function: Patent airway with normal (patient baseline) respiratory exam Cardiovascular Function: Hemodynamically Stable Hydration Status: Adequately Hydrated Nausea & Vomiting: No Nausea or Vomiting Pain: Pt. Denies Any Pain Peripheral Nerve Block: Patient did not receive a nerve block
== END 2025-03-10 13:38 | disposition home or self-care (01) ==
LOC: SUR 09:52
PROVIDERS: PCP Nurse Practitioner Family; Visit Provider Surgery
PROC: 0DJD8ZZ Inspection of Lower Intestinal Tract, Via Natural or Artificial Opening Endoscopic (ICD-10-PCS; CPT 45378; principal; 2025-03-10 11:15)
DX: Z12.11 Encounter for screening for malignant neoplasm of colon (principal)
CPT/HCPCS: 45378; J2003; J2704